=== PATIENT | male | born 1940 | race Caucasian/White ===

== ENCOUNTER 2020-06-12 13:29 | Emergency (ER) | payer OTHER ==
[~2020-06-12] VITALS: Ht 177.8 cm; Wt 99.8 kg
[2020-06-12 14:16] LABS: Basophils # (auto) 0 10 ^3/uL (0-0.2); Basophils % (auto) 0.7 % (0.0-2.0); Eosinophils # (auto) 0 10 ^3/uL (0-0.8); Eosinophils % (auto) 0.9 % (0.0-7.0); Hematocrit 45.4 % (41.0-53.0); Lymphocytes # (auto) 0.6 10 ^3/uL (0.4-5.4); Lymphocytes % (auto) 10.3 % (10.0-50.0); Mean Corpuscular Hemoglobin 28.4 pg (28.0-32.0); Monocytes # (auto) 0.6 10 ^3/uL (0-1.3); Monocytes % (auto) 10.2 % (0.0-12.0); Neutrophils # (auto) 4.4 10 ^3/uL (1.6-8.6); Neutrophils % (auto) 77.9 % (37.0-80.0); Red Blood Cells 5.27 10^6/uL (4.5-5.90); Red Cell Distribution Width 14.2 % (11.8-14.3); White Blood Cell 5.6 10^3/uL (4.4-10.8)
[2020-06-12 14:30] VITALS: BP 137/77
[2020-06-12] MEDS ORDERED: HYDROcodone-ACET 10/325MG TAB PO ONE (14:30)
[2020-06-12 14:37] LABS: Albumin 3.7 g/dL (3.4-5.0); Calcium 8.7 mg/dL (8.5-10.1); Potassium 4.1 mmol/L (3.5-5.1)
[2020-06-12 14:39] LABS: INR 0.99 (0.9-1.15); Partial Thromboplastin Time 27.2 sec (23.0-31.2)
[2020-06-12 14:43] LABS: Bilirubin, Total 0.6 mg/dL (0.2-1.0); Total Protein 7.6 g/dL (6.4-8.2)
[2020-06-12] MEDS ORDERED: ONDANSETRON ODT 4 MG TAB PO ONE ×2 (14:52→15:00)
== END 2020-06-12 15:47 | disposition home or self-care (01) ==
LOC: EDBD 13:29 → ER 13:29
DX: R04.0 Epistaxis (principal); E11.9 Type 2 diabetes mellitus without complications; E78.5 Hyperlipidemia, unspecified; I10 Essential (primary) hypertension
CPT/HCPCS: 30901; 36415; 71045; 80053; 84484; 85025; 85610; 85730; 99284; Q0162

== ENCOUNTER 2020-06-16 14:25 | Emergency (ER) | payer OTHER ==
[~2020-06-16] VITALS: Ht 190.5 cm; Wt 90.7 kg
[2020-06-16 14:29] VITALS: BP 133/72
== END 2020-06-16 15:36 | disposition home or self-care (01) ==
LOC: ER 14:25
DX: R04.0 Epistaxis (principal); E11.9 Type 2 diabetes mellitus without complications; E78.5 Hyperlipidemia, unspecified; I10 Essential (primary) hypertension
CPT/HCPCS: 30901; 71045